=== PATIENT | female | born 1960 | race Asian ===

== ENCOUNTER 2022-01-03 10:31 | Emergency (ER) | payer BC ==
[~2022-01-03] VITALS: Ht 157.5 cm; Wt 59.0 kg
[2022-01-03] MEDS ORDERED: SODIUM CHLORIDE 0.9% 1,000 ML IV ONE (11:00)
[2022-01-03 11:04] LABS: BASOPHILS % 0.7 % (0.0-2.0); EOSINOPHILS % 1.8 % (0.0-5.0); HEMATOCRIT. 37.4 % (36.0-48.0); HEMOGLOBIN. 11.8 g/dL (12.0-16.0); LYMPHOCYTES % 26.7 % (20.0-50.0); MEAN CORPUSCULAR HEMOGLOBIN 21.7 pg (28.0-32.0); MEAN CORPUSCULAR VOLUME 68.9 fL (81.0-99.0); MEAN PLATELET VOLUME 8.6 fl (7.4-10.4); MONOCYTES % 8.7 % (2.0-8.0); NEUTROPHILS % 62.1 % (40.0-76.0); PLATELET 201 x1000/uL (130-400); RED BLOOD CELL COUNT 5.43 mill/uL (4.2-5.4); RED CELL DISTRIBUTION WIDTH 14.7 % (11.6-14.6)
[2022-01-03 11:10] LABS: CHLORIDE 108 mEq/L (98-107)
[2022-01-03 11:18] LABS: PHOSPHORUS 2.7 mg/dL (2.5-4.9)
[2022-01-03 11:21] LABS: CLARITY URINE CLEAR (CLEAR); COLOR URINE YELLOW (YELLOW); KETONES URINE NEGATIVE (NEGATIVE); LEUKOCYTE ESTERASE URINE NEGATIVE (NEGATIVE); NITRITE URINE NEGATIVE (NEGATIVE); OCCULT BLOOD URINE NEGATIVE (NEGATIVE); PH URINE 7.5 (4.5-8.0); PROTEIN URINE NEGATIVE (NEGATIVE); SPECIFIC GRAVITY URINE 1.013 (1.005-1.030); UROBILINOGEN URINE 0.2 E.U./dL (0.2-1.0)
[2022-01-03 11:23] LABS: CREATINE KINASE 54 IU/L (26-192)
[2022-01-03] MEDS ORDERED: DILTIAZEM HCL 5MG/ML 5ML VIAL IV ONE (11:30)
[2022-01-03 11:31] LABS: PLATELET ESTIMATE NORMAL
[2022-01-03 11:54] LABS: *AMPHETAMINES SCREEN URINE NEGATIVE (NEGATIVE); *BARBITURATES SCREEN URINE NEGATIVE (NEGATIVE); *BENZODIAZEPINES SCREEN URINE NEGATIVE (NEGATIVE); *COCAINE SCREEN URINE NEGATIVE (NEGATIVE)
[2022-01-03 11:55] LABS: CANNABINOID URINE SCREEN NEGATIVE (NEGATIVE); METHADONE URINE SCREEN NEGATIVE (NEGATIVE); OPIATES URINE SCREEN NEGATIVE (NEGATIVE); PHENCYCLIDINE URINE SCREEN NEGATIVE (NEGATIVE)
[2022-01-03 11:57] LABS: T4 FREE 1.23 ng/dL (0.76-1.46)
[2022-01-03] MEDS ORDERED: DILTIAZEM HCL 30MG TABLET PO ONE (12:15)
[2022-01-03] MEDS ORDERED: DILTIAZEM HCL 30MG TABLET PO SCH (12:30)
[2022-01-03 12:54] VITALS: BP 123/77
== END 2022-01-03 12:55 | disposition home or self-care (01) ==
LOC: ER 10:49
DX: I48.91 Unspecified atrial fibrillation (principal); R00.2 Palpitations; R53.83 Other fatigue
CPT/HCPCS: 36415; 71045; 80053; 80305; 81003; 82550; 83735; 83880; 84100; 84439; 84443; 84481; 84484; 85025; 93005; 96361; 96374; 99285; J3490; J7030